=== PATIENT | female | born 1995 | race Caucasian/White ===

== ENCOUNTER 2018-11-28 02:02 | Emergency (ER) | payer OTHER ==
[~2018-11-28] VITALS: Ht 149.9 cm; Wt 66.2 kg
[2018-11-28] MEDS ORDERED: KETO10TA2 PO (03:14)
[2018-11-28] MEDS ORDERED: ORPHENADRINE C100 MG PO (03:14)
== END 2018-11-28 03:27 | disposition home or self-care (01) ==
LOC: ER 02:02
DX: S13.4XXA Sprain of ligaments of cervical spine, initial encounter (principal); V49.9XXA Car occupant (driver) (passenger) injured in unspecified traffic accident, initial encounter; Y93.89 Activity, other specified; Y92.488 Other paved roadways as the place of occurrence of the external cause; Y99.8 Other external cause status